=== PATIENT | female | born 1940 | race Caucasian/White ===

== ENCOUNTER 2022-06-14 13:42 | Inpatient (IN) | payer OTHER ==
[~2022-06-14] VITALS: Ht 167.6 cm; Wt 58.1 kg
[2022-06-14 14:11] VITALS: BP_SYST 154
[2022-06-14 14:59] LABS: BASOPHILS % (AUTO) 0.1 % (0.0-2.0); EOSINOPHILS % (AUTO) 0.1 % (0.0-4.0); HEMATOCRIT 29.8 % (36-48); HEMOGLOBIN 9.5 g/dL (12.0-16.0); LYMPHOCYTES % (AUTO) 17.5 % (20.5-51.5); MEAN CORPUSCULAR HEMOGLOBIN 23 pg (27-31); MEAN CORPUSCULAR HGB CONC 32 % (32-36); MEAN CORPUSCULAR VOLUME 72 fL (79.0-98.0); MONOCYTES # (AUTO) 0.5 K/uL (0.0-1.0); MONOCYTES % (AUTO) 9.2 % (1.7-9.3); NEUTROPHILS # (AUTO) 4.1 K/uL (1.8-7.7); NEUTROPHILS % (AUTO) 73.1 % (40.0-70.0); PLATELET COUNT (AUTO) 206 K/uL (130-430); RED BLOOD CELL COUNT(AUTO) 4.17 MIL/uL (4.2-6.2); RED CELL DISTRIBUTION WIDTH 16.7 % (9.0-15.0); WHITE BLOOD COUNT (AUTO) 5.6 K/uL (4.8-10.8)
[2022-06-14 15:19] LABS: ANION GAP 11 (5-15); CALCIUM 8.8 mg/dL (8.4-11.0); CHLORIDE 106 mmol/L (98-107); CREATININE 1.14 mg/dL (0.55-1.30); GLUCOSE 118 mg/dL (70-99); POTASSIUM 3.8 mmol/L (3.5-5.1); SODIUM SERUM 140 mmol/L (136-145); UREA NITROGEN, BLOOD 20 mg/dL (8-21)
[2022-06-14 15:20] LABS: PROTHROMBIN TIME 9.9 SECS (9.5-12.5)
[2022-06-14 15:33] LABS: ALANINE AMINOTRANSFERASE 8 U/L (12-78); ALBUMIN 3.2 g/dL (3.4-4.8); ASPARTATE AMINOTRANSFERASE 14 U/L (10-37); TOTAL BILIRUBIN 0.6 mg/dL (0.0-1.0)
[2022-06-14] MEDS ORDERED: iohexoL 350 mgI/mL, 100 ML INFUS..BTL IV ONE (16:19)
--- NOTE | 2022-06-14 18:49 | NUR ---
Admit bed requested Patient will be admitted to care of Dr Sosa.. Admitted to Tele unit. Diagnosis syncope/fall Inpatient (Yes or No) Observation (Yes or No) Orientation concerns or request close to nursing station (Yes or No) n/a Covid Status( pending ] On vent or bipap n/a Isolation requirements n/a Needs a sitter n/a From Home (Yes or if No enter name of facility) yes Requires Dialysis (Yes or No) n/a Med Rec Completed (Yes of No) no
--- NOTE | 2022-06-14 18:50 | NUR ---
Pt presents to the ER BIB son CC General weakness. Pt is aaox4 skin intact no signs of trauma. Pt states fell in the shower twice hitting back of head. No swelling present. Pt states lost 50 pounds in past 6 months r/t diarrhea and constipation issues seeing GI specialist visit due on 06/23/2024. Pt signed consent for CT scan. Hx HTN
--- NOTE | 2022-06-15 00:05 | NUR ---
Note shayymaciej in ED - 06/15/22 at 0008 by SDNLINA Admit bed requested Patient will be admitted to care of . Admitted to [] unit. Diagnosis [] Inpatient (Yes or No) [] Observation (Yes or No) [] Orientation concerns or request close to nursing station (Yes or No) [] Covid Status [] On vent or bipap [] Isolation requirements [] Needs a sitter [] From Home (Yes or if No enter name of facility) [] Requires Dialysis (Yes or No) [] Med Rec Completed (Yes of No) []
--- NOTE | 2022-06-15 01:09 | NUR ---
Pt ambulates steady to the restroom with assistance. Pt provided urine specimen and walked over to the lab.
[2022-06-15 01:42] LABS: BILIRUBIN,URINE 1+ (NEGATIVE); CLARITY/URINE CLEAR (CLEAR); COLOR,URINE YELLOW (YELLOW); GLUCOSE,URINE NEGATIVE (NEGATIVE); KETONES,URINE TRACE (NEGATIVE); LEUKOCYTE ESTERASE ,URINE 1+ (NEGATIVE); NITRITE, URINE NEGATIVE (NEGATIVE); PH,URINE 5.5 (5.0-8.0); PROTEIN URINE NEGATIVE (NEGATIVE)
[2022-06-15 01:46] LABS: BLOOD, URINE TRACE (NEGATIVE)
[2022-06-15 02:18] LABS: BACTERIA,URINE MODERATE /HPF (None Seen); RBC,URINE 20-50 /HPF (0-3); WBC,URINE >100 /HPF (0-3)
[2022-06-15 02:19] LABS: MUCUS,URINE 2+ /LPF (None Seen)
--- NOTE | 2022-06-15 02:44 | NUR ---
# 20 gauge angiocath placed to LAC. Use of asceptic technique. Opsite placed over site. Blood return noted. Blood for lab drawn from site. Flushed with 10 cc of normal saline. No evidence of infiltration noted. Patient tolerated well.
[2022-06-15] MEDS: hydrALAZINE HCL 20 MG/ML VIAL IVP PRN (02:48)
[2022-06-15] MEDS ORDERED: ONDANSETRON HCL 4 MG/2 ML VIAL IVP PRN (11:45)
--- NOTE | 2022-06-15 12:13 | NUR ---
DC PLANNING Received call from Dariela, liz [phone] fax [phone], CM at [facility]. Updated on pt status, faxed info requested. States to call her for any dc planning needs.
[2022-06-15] MEDS ORDERED: ACETAMINOPHEN 325 MG TABLET PO PRN (12:15)
[2022-06-15] MEDS ORDERED: NORMAL SALINE 5 ML DISP.SYRIN IVF SCH (14:00)
[2022-06-15] MEDS: NORMAL SALINE 5 ML DISP.SYRIN IVF SCH ×2 (14:16→22:17)
--- NOTE | 2022-06-15 19:05 | NUR ---
SBAR GIVEN TO PHYLLIS BRADFORD FOR TELE ROOM 104B. ALL QUESTIONS ANSWERED. PT VSS. NAD NOTED. FAMILY AT BEDSIDE. END OF CARE.
[2022-06-15 20:00] VITALS: BP_SYST 142
[2022-06-16 01:07] VITALS: BP_SYST 155
[2022-06-16 01:37] VITALS: BP_SYST 142
[2022-06-16] MEDS: NORMAL SALINE 5 ML DISP.SYRIN IVF SCH ×3 (06:00→21:30)
[2022-06-16 06:31] LABS: BASOPHILS % (AUTO) 0.2 % (0.0-2.0); EOSINOPHILS % (AUTO) 0.3 % (0.0-4.0); HEMATOCRIT 26.5 % (36-48); HEMOGLOBIN 8.6 g/dL (12.0-16.0); LYMPHOCYTES # (AUTO) 1.2 K/uL (1.0-5.5); LYMPHOCYTES % (AUTO) 19.7 % (20.5-51.5); MEAN CORPUSCULAR HEMOGLOBIN 24 pg (27-31); MEAN CORPUSCULAR HGB CONC 33 % (32-36); MEAN CORPUSCULAR VOLUME 72 fL (79.0-98.0); MONOCYTES # (AUTO) 0.7 K/uL (0.0-1.0); NEUTROPHILS # (AUTO) 4.1 K/uL (1.8-7.7); NEUTROPHILS % (AUTO) 68.8 % (40.0-70.0); PLATELET COUNT (AUTO) 183 K/uL (130-430); RED BLOOD CELL COUNT(AUTO) 3.68 MIL/uL (4.2-6.2); RED CELL DISTRIBUTION WIDTH 16.7 % (9.0-15.0)
[2022-06-16 07:12] LABS: ANION GAP 9 (5-15); CALCIUM 8.5 mg/dL (8.4-11.0); CHLORIDE 106 mmol/L (98-107); CREATININE 0.76 mg/dL (0.55-1.30); GLUCOSE 106 mg/dL (70-99); PHOSPHORUS 3.2 mg/dL (2.7-4.5); POTASSIUM 3.9 mmol/L (3.5-5.1); SODIUM SERUM 137 mmol/L (136-145); UREA NITROGEN, BLOOD 22 mg/dL (8-21)
--- NOTE | 2022-06-16 07:35 | NUR ---
RECEIVED PATIENT IN BED RESTING COMFORTABLY, NO C/O PAIN OR DISCOMFORT, PRESENTS CALM AND COOPERATIVE. RESPIRATIONS ARE NON-LABORED. SKIN IS CLEAN, WARM AND DRY TO TOUCH. IV ACCESS IS PATENT, DRY AND SEURE, NO S/SX OF REDNESS OR SWELLING OBSERVED. BED IS LOCKED IN LOWEST POSITION FOR SAFETY, FALL PRECATIONS INITIATED, CALL LIGHT IN REACH. NURSE WILL CONTINUE CARE AND MONITOR FOR CHANGES IN STATUS.
--- NOTE | 2022-06-16 08:51 | NUR ---
CONSULTATION PAGED REASON FOR CONSULTATIONANEMIA WAS CONSULT CALED?Y PERSON WHO WAS NOTIFIED:NICO CONSULTING PHYSICIAN:NIXON JIMÉNEZ TOBACCO WRAPPING MACHINE TENDER SPECIALTY:GI TOBACCO WRAPPING MACHINE TENDER PHONE NUMBER:[phone] REQUESTING PHYSICIAN:AYE LAM
[2022-06-16] MEDS: cefTRIAXone 1 GM in D5W 50 ML IV SCH (09:03)
[2022-06-16] MEDS: METOPROLOL TARTRATE 50 MG TABLET PO SCH ×2 (09:08→21:27)
[2022-06-16] MEDS: hydrALAZINE HCL 20 MG/ML VIAL IVP PRN (09:08)
[2022-06-16] MEDS: PANTOPRAZOLE SODIUM 40 MG/VIAL (PROTONIX) IVP SCH (09:08)
[2022-06-16 09:16] LABS: TOTAL IRON BIND. CAPACITY 334 ug/dL (250-450)
[2022-06-16 10:37] VITALS: BP_SYST 174
[2022-06-16 12:30] VITALS: BP_SYST 131
--- NOTE | 2022-06-16 13:11 | NUR ---
PATIENT IN BED RESTING COMFORTABLY, NO C/O PAIN OR DISCOMFORT. RESPIRATIONS ARE NON-LABORED. SKIN IS CLEAN, WARM AND DRY TO TOUCH. IV ACCESS IS PATENT, DRY AND SECURE, NO S/SX OF REDNESS OR SWELLING OBSERVED. BED IS LOCKED IN LOWEST POSITION FOR SAFETY, FALL PRECAUTIONS INITIATED, CALL LIGHT IN REACH. NURSE WILL CONTINUE CARE AND MONITOR FOR CHANGES IN STATUS.
--- NOTE | 2022-06-16 15:02 | NUR ---
CONSENTS OBTAINED FOR COLONOSCOPY AND EGD, SIGNED AND PLACED IN CHART.
--- NOTE | 2022-06-16 15:26 | NUR ---
PATIENT IN BED RESTING COMFORTABLY, NO C/O PAIN OR DISCOMFORT. RESPIRATIONS ARE NON-LABORED. SKIN IS CLEAN, WARM AND DRY TO TOUCH. IV ACCESS IS PATENT, DRY AND SECURE, NO S/SX OF REDNESS OR SWELLING OBSERVED. BED IS LOCKED IN LOWEST POSITION FOR SAFETY, CALL LIGHT IN REACH. NURSE WILL CONTINUE CARE AND MONITOR FOR CHANGES IN STATUS.
[2022-06-16] MEDS ORDERED: BISACODYL 5 MG TABLET.DR (DULCOLAX) PO ONE (17:00)
[2022-06-16 17:04] VITALS: BP_SYST 130
[2022-06-16] MEDS ORDERED: GOLYTELY / COLYTE SOLUTION 4 LITERS PO ONE (18:00)
[2022-06-16 20:00] VITALS: BP_SYST 141
[2022-06-17 00:47] VITALS: BP_SYST 122
[2022-06-17 04:00] VITALS: BP_SYST 131
[2022-06-17 06:30] LABS: BASOPHILS % (AUTO) 0.2 % (0.0-2.0); EOSINOPHILS % (AUTO) 0.2 % (0.0-4.0); HEMATOCRIT 30.8 % (36-48); HEMOGLOBIN 9.9 g/dL (12.0-16.0); LYMPHOCYTES # (AUTO) 2.2 K/uL (1.0-5.5); LYMPHOCYTES % (AUTO) 21.4 % (20.5-51.5); MEAN CORPUSCULAR HEMOGLOBIN 23 pg (27-31); MEAN CORPUSCULAR HGB CONC 32 % (32-36); MEAN CORPUSCULAR VOLUME 72 fL (79.0-98.0); MONOCYTES # (AUTO) 0.8 K/uL (0.0-1.0); MONOCYTES % (AUTO) 8.2 % (1.7-9.3); NEUTROPHILS # (AUTO) 7.1 K/uL (1.8-7.7); PLATELET COUNT (AUTO) 262 K/uL (130-430); RED BLOOD CELL COUNT(AUTO) 4.28 MIL/uL (4.2-6.2); RED CELL DISTRIBUTION WIDTH 16.8 % (9.0-15.0); WHITE BLOOD COUNT (AUTO) 10.2 K/uL (4.8-10.8)
[2022-06-17] MEDS: NORMAL SALINE 5 ML DISP.SYRIN IVF SCH ×2 (06:58→14:00)
[2022-06-17] MEDS ORDERED: MAGNESIUM CITRATE 300 ML ORAL SOLUTION PO ONE (08:00)
[2022-06-17 08:24] VITALS: BP_SYST 139
--- NOTE | 2022-06-17 08:24 | NUR ---
CONSULTATION PAGED REASON FOR CONSULTATION:ANEMIA WAS CONSULT CALLED?Y -PERSON WHO WAS NOTIFIED:ELISABETH CONSULTING PHYSICIAN:NIXON JIMÉNEZ DOORKEEPER SPECIALTY:GI DOORKEEPER PHONE NUMBER:[phone] REQUESTING PHYSICIAN AYE LAM
[2022-06-17] MEDS: METOPROLOL TARTRATE 50 MG TABLET PO SCH ×2 (08:41→21:47)
[2022-06-17] MEDS: PANTOPRAZOLE SODIUM 40 MG/VIAL (PROTONIX) IVP SCH (08:41)
[2022-06-17 08:48] LABS: ALANINE AMINOTRANSFERASE 7 U/L (12-78); ANION GAP 11 (5-15); ASPARTATE AMINOTRANSFERASE 19 U/L (10-37); CALCIUM 8.7 mg/dL (8.4-11.0); CHLORIDE 105 mmol/L (98-107); CREATININE 1.03 mg/dL (0.55-1.30); GLUCOSE 146 mg/dL (70-99); POTASSIUM 3.4 mmol/L (3.5-5.1); SODIUM SERUM 141 mmol/L (136-145); TOTAL BILIRUBIN 0.6 mg/dL (0.0-1.0); UREA NITROGEN, BLOOD 23 mg/dL (8-21)
--- NOTE | 2022-06-17 08:56 | NUR ---
Enema done. Patient tolerated well
[2022-06-17] MEDS ORDERED: POTASSIUM CHLORIDE 20 MEQ/PKT PACKET PO ONE (09:15)
--- NOTE | 2022-06-17 09:53 | NUR ---
Patient left for colonoscopy
[2022-06-17] MEDS: SOD FERRIC GLUC COMPLEX/SUC 125 MG in NS 100 ML IV SCH (10:00)
[2022-06-17] MEDS ORDERED: MEPERIDINE 100 MG INJ. 100 MG/ML VIAL ONE (10:09)
[2022-06-17] MEDS ORDERED: SIMETHICONE 40 MG/0.6 ML ML ONE (10:09)
[2022-06-17] MEDS ORDERED: MIDAZOLAM HCL 5 MG/5 ML VIAL ONE (10:10)
[2022-06-17 12:16] VITALS: BP_SYST 140
--- NOTE | 2022-06-17 12:16 | NUR ---
STEVE: discussed dcp with STEVE Lyle /[facility]: stated, she spoke with family who requested HH and Fww with seat upon discharge. Per request, I faxed the order and clinicals to fax# [phone], tel .
--- NOTE | 2022-06-17 12:38 | NUR ---
CONSULTATION PAGED REASON FOR CONSULTATION:RECTAL MASS WAS CONSULT CALLED?Y -PERSON WHO WAS NOTIFIED:RHODA CONSULTING PHYSICIAN:TOSHIA PACHECO (KIRTI CHAUDHARY HEMMER AUTOMATIC) PRODUCTION FLOATER SPECIALTY:SURGEON PRODUCTION FLOATER PHONE NUMBER:[phone] REQUESTING PHYSICIAN NIXON JIMÉNEZ
[2022-06-17] MEDS: cefTRIAXone 1 GM in D5W 50 ML IV SCH (13:51)
--- NOTE | 2022-06-17 14:32 | NUR ---
Dietitian Recommendations: When medically appropriate, consider 2gNa diet If PO <75% of est nutrient needs, add daily ONS Consider daily bowel regimen with Fe supplement Nutrition education: high iron foods Please refer to initial assessment for more details CC, MPH, RDN
--- NOTE | 2022-06-17 15:15 | NUR ---
CONSULTATION PAGED REASON FOR CONSULTATION:RECTAL MASS WAS CONSULT CALLED?Y -PERSON WHO WAS NOTIFIED:ALAN CONSULTING PHYSICIAN:RENÉE BEST PASSENGER CAR CONDUCTOR SPECIALTY:HEMATOLOGY PASSENGER CAR CONDUCTOR PHONE NUMBER:[phone] REQUESTING PHYSICIAN:NIXON JIMÉNEZ
[2022-06-17 16:10] VITALS: BP_SYST 142
--- NOTE | 2022-06-17 19:22 | NUR ---
RECEIVED REPORT FROM SUZETTE ALICIA, ASSUMED CARE, AND STARTED ASSESSMENT.
[2022-06-17 20:00] VITALS: BP_SYST 147
--- NOTE | 2022-06-18 02:00 | NUR ---
ASSISTED PT TO THE RESTROOM, AND WENT ON BREAK. PT WAS ASSISTED BACK TO HER BED BY RELIEVING STAFF. RETURNED FROM BREAK AT 0230. WILL CONTINUE TO MONITOR AND ASSESS FOR SAFETY AND COMFORT.
[2022-06-18 06:29] LABS: BASOPHILS % (AUTO) 0.3 % (0.0-2.0); EOSINOPHILS # (AUTO) 0.1 K/uL (0.0-0.4); EOSINOPHILS % (AUTO) 1.4 % (0.0-4.0); HEMATOCRIT 25.7 % (36-48); HEMOGLOBIN 8.3 g/dL (12.0-16.0); LYMPHOCYTES # (AUTO) 0.9 K/uL (1.0-5.5); LYMPHOCYTES % (AUTO) 16.7 % (20.5-51.5); MEAN CORPUSCULAR HEMOGLOBIN 23 pg (27-31); MEAN CORPUSCULAR HGB CONC 32 % (32-36); MEAN CORPUSCULAR VOLUME 71 fL (79.0-98.0); MONOCYTES # (AUTO) 0.5 K/uL (0.0-1.0); MONOCYTES % (AUTO) 9.2 % (1.7-9.3); NEUTROPHILS # (AUTO) 3.7 K/uL (1.8-7.7); PLATELET COUNT (AUTO) 172 K/uL (130-430); RED BLOOD CELL COUNT(AUTO) 3.61 MIL/uL (4.2-6.2); RED CELL DISTRIBUTION WIDTH 17.1 % (9.0-15.0); WHITE BLOOD COUNT (AUTO) 5.1 K/uL (4.8-10.8)
[2022-06-18 07:07] LABS: ALANINE AMINOTRANSFERASE 7 U/L (12-78); ALBUMIN 2.5 g/dL (3.4-4.8); ANION GAP 7 (5-15); ASPARTATE AMINOTRANSFERASE 16 U/L (10-37); CALCIUM 8.2 mg/dL (8.4-11.0); CHLORIDE 108 mmol/L (98-107); GLUCOSE 91 mg/dL (70-99); POTASSIUM 3.6 mmol/L (3.5-5.1); SODIUM SERUM 140 mmol/L (136-145); TOTAL BILIRUBIN 0.3 mg/dL (0.0-1.0); UREA NITROGEN, BLOOD 14 mg/dL (8-21)
--- NOTE | 2022-06-18 07:21 | NUR ---
REPORT WAS GIVEN TO SUZETTE BENITEZ, AND CARE WAS TURNED OVER TO HER.
[2022-06-18 08:06] LABS: NEUTROPHILS % (AUTO) 72.4 % (40.0-70.0)
[2022-06-18 08:48] VITALS: BP_SYST 147
[2022-06-18] MEDS: PANTOPRAZOLE SODIUM 40 MG/VIAL (PROTONIX) IVP SCH (08:58)
[2022-06-18] MEDS: METOPROLOL TARTRATE 50 MG TABLET PO SCH ×2 (08:58→21:23)
[2022-06-18] MEDS: SOD FERRIC GLUC COMPLEX/SUC 125 MG in NS 100 ML IV SCH (10:00)
[2022-06-18] MEDS: cefTRIAXone 1 GM in D5W 50 ML IV SCH (10:58)
[2022-06-18 12:00] VITALS: BP_SYST 146
[2022-06-18] MEDS ORDERED: GADOTERATE MEGLUMINE 7.5 MMOL/15 ML VIAL IV ONE (12:49)
[2022-06-18] MEDS: NORMAL SALINE 5 ML DISP.SYRIN IVF SCH ×2 (14:00→21:24)
[2022-06-18] MEDS ORDERED: iohexoL 240 mgI/mL, 50 ML INFUS..BTL IV ONE (15:14)
--- NOTE | 2022-06-18 15:42 | NUR ---
Attempted PT visit, pt refused and requested to be seen another day. RN made aware.
[2022-06-18 16:09] VITALS: BP_SYST 146
--- NOTE | 2022-06-18 16:43 | NUR ---
PT is Axox4, ambulatory with 1-person assist, VSS, bed in lowest position, locked. Patient awaiting oncology consult per Dr. Naz Corcoran.
--- NOTE | 2022-06-18 19:15 | NUR ---
RECEIVED REPORT FROM SUZETTE BENITEZ, ASSUMED CARE, AND STARTED ASSESSMENT.
[2022-06-18 20:00] VITALS: BP_SYST 155
[2022-06-19] MEDS: NORMAL SALINE 5 ML DISP.SYRIN IVF SCH ×2 (05:18→14:00)
[2022-06-19 07:27] LABS: BASOPHILS % (AUTO) 0.2 % (0.0-2.0); EOSINOPHILS % (AUTO) 0.8 % (0.0-4.0); HEMATOCRIT 25.5 % (36-48); HEMOGLOBIN 8.3 g/dL (12.0-16.0); LYMPHOCYTES # (AUTO) 0.9 K/uL (1.0-5.5); LYMPHOCYTES % (AUTO) 19.7 % (20.5-51.5); MEAN CORPUSCULAR HEMOGLOBIN 23 pg (27-31); MEAN CORPUSCULAR HGB CONC 32 % (32-36); MEAN CORPUSCULAR VOLUME 72 fL (79.0-98.0); MONOCYTES # (AUTO) 0.5 K/uL (0.0-1.0); MONOCYTES % (AUTO) 12.1 % (1.7-9.3); NEUTROPHILS # (AUTO) 3.1 K/uL (1.8-7.7); NEUTROPHILS % (AUTO) 67.2 % (40.0-70.0); PLATELET COUNT (AUTO) 172 K/uL (130-430); RED BLOOD CELL COUNT(AUTO) 3.56 MIL/uL (4.2-6.2); RED CELL DISTRIBUTION WIDTH 17.1 % (9.0-15.0); WHITE BLOOD COUNT (AUTO) 4.5 K/uL (4.8-10.8)
[2022-06-19 08:01] LABS: ALBUMIN 2.3 g/dL (3.4-4.8); ANION GAP 5 (5-15); ASPARTATE AMINOTRANSFERASE 13 U/L (10-37); CALCIUM 7.9 mg/dL (8.4-11.0); CHLORIDE 108 mmol/L (98-107); CREATININE 0.77 mg/dL (0.55-1.30); GLUCOSE 92 mg/dL (70-99); POTASSIUM 3.7 mmol/L (3.5-5.1); SODIUM SERUM 140 mmol/L (136-145); TOTAL BILIRUBIN 0.3 mg/dL (0.0-1.0); UREA NITROGEN, BLOOD 7 mg/dL (8-21)
[2022-06-19 08:29] LABS: ALANINE AMINOTRANSFERASE 6 U/L (12-78)
[2022-06-19 09:06] LABS: FOLATE (FOLIC ACID) 14.2 ng/mL (>3.0)
[2022-06-19] MEDS ORDERED: FERR240T5 PO (09:12)
[2022-06-19] MEDS ORDERED: PANT20TA2 PO (09:12)
[2022-06-19] MEDS ORDERED: METO-442 PO (09:12)
[2022-06-19] MEDS: PANTOPRAZOLE SODIUM 40 MG/VIAL (PROTONIX) IVP SCH (10:13)
[2022-06-19] MEDS: cefTRIAXone 1 GM in D5W 50 ML IV SCH (10:14)
[2022-06-19] MEDS: METOPROLOL TARTRATE 50 MG TABLET PO SCH ×2 (10:14→22:05)
[2022-06-19] MEDS: SOD FERRIC GLUC COMPLEX/SUC 125 MG in NS 100 ML IV SCH (10:15)
[2022-06-19 15:16] VITALS: BP_SYST 141
[2022-06-19 16:00] VITALS: BP_SYST 150
--- NOTE | 2022-06-19 16:17 | NUR ---
Discharge Planning: DCP faxed pt referral to [facility] [phone]
--- NOTE | 2022-06-19 18:45 | NUR ---
Miss Green has been assessed as indicated. she continues to deny pain. He DC home has been delayed as there is a possible plan for surgery on Wednesday. however the oncologist must complete his evaluation of the colonoscopy findings. Miss Hodge's son is aware of this possibility. She worked with PT today. she is compliant with the plan to remain hospitalized until her plan of care is clear. she is resting quietly at this time
--- NOTE | 2022-06-19 19:12 | NUR ---
RE-SURGERY PLAN TO HOLD FOR NOW FOUND OUT FROM PATIENT'S SON THAT DR BLACK IS PLANNING A SURGERY TO THE PATIENT. SPOKE TO DR BLACK AND SAID THAT HE SPOKE TO DR LOWERY AND MADE AWARE ABOUT THE PLAN OF SURGERY. DR LOWERY DID NOT INFORM DR VILLARREAL WHO IS IN CHARGE OF THE PATIENT TODAY. DR MERCER CAME AND MADE AWARE OF SURGERY AND SPOKE TO DR VILLARREAL AND WANTS THE SURGERY TO BE HOLD FOR NOW BECAUSE THERE IS NO FINAL RESULTS OF MRI, HE WANTS THE PATIENT TO HAVE A MEDIPORT FIRST AND WILL DO CHEMO. PAGED DR BLACK 2X BUT NEVER CALL BACK. NOTIFIED SON THAT SURGERY IS ON HOLD.WILL ENDORSE TO INCOMING CHARGE NURSE NIKIA.
[2022-06-19 20:00] VITALS: BP_SYST 164
[2022-06-20] MEDS: NORMAL SALINE 5 ML DISP.SYRIN IVF SCH ×3 (04:43→21:15)
[2022-06-20] MEDS ORDERED: iohexoL 350 mgI/mL, 100 ML INFUS..BTL IV ONE (07:04)
[2022-06-20 07:37] LABS: BASOPHILS % (AUTO) 0.2 % (0.0-2.0); EOSINOPHILS # (AUTO) 0.1 K/uL (0.0-0.4); EOSINOPHILS % (AUTO) 0.9 % (0.0-4.0); HEMATOCRIT 26.3 % (36-48); HEMOGLOBIN 8.4 g/dL (12.0-16.0); LYMPHOCYTES # (AUTO) 1.2 K/uL (1.0-5.5); LYMPHOCYTES % (AUTO) 21.6 % (20.5-51.5); MEAN CORPUSCULAR HEMOGLOBIN 23 pg (27-31); MEAN CORPUSCULAR HGB CONC 32 % (32-36); MEAN CORPUSCULAR VOLUME 72 fL (79.0-98.0); MONOCYTES # (AUTO) 0.7 K/uL (0.0-1.0); MONOCYTES % (AUTO) 13.3 % (1.7-9.3); NEUTROPHILS # (AUTO) 3.5 K/uL (1.8-7.7); PLATELET COUNT (AUTO) 171 K/uL (130-430); RED BLOOD CELL COUNT(AUTO) 3.65 MIL/uL (4.2-6.2); RED CELL DISTRIBUTION WIDTH 17.3 % (9.0-15.0); WHITE BLOOD COUNT (AUTO) 5.5 K/uL (4.8-10.8)
[2022-06-20 07:47] LABS: ANION GAP 7 (5-15); C-REACTIVE PROTEIN QUANT 5.4 mg/dL (0-0.5); CHLORIDE 108 mmol/L (98-107); GLUCOSE 98 mg/dL (70-99); POTASSIUM 3.7 mmol/L (3.5-5.1); SODIUM SERUM 141 mmol/L (136-145); UREA NITROGEN, BLOOD 13 mg/dL (8-21)
[2022-06-20] MEDS: SOD FERRIC GLUC COMPLEX/SUC 125 MG in NS 100 ML IV SCH (10:00)
[2022-06-20] MEDS: PANTOPRAZOLE SODIUM 40 MG/VIAL (PROTONIX) IVP SCH (11:36)
[2022-06-20] MEDS: cefTRIAXone 1 GM in D5W 50 ML IV SCH (11:40)
[2022-06-20] MEDS: METOPROLOL TARTRATE 50 MG TABLET PO SCH ×2 (11:48→21:15)
[2022-06-20] MEDS: ACETAMINOPHEN 325 MG TABLET PO PRN (11:48)
[2022-06-20 12:00] VITALS: BP_SYST 148
--- NOTE | 2022-06-20 12:19 | NUR ---
Dr. Perea, oncologist, came to see patient. Discussed information with patient's son.
--- NOTE | 2022-06-20 12:51 | NUR ---
CM: Faxed HH order and referral package to [facility] tel # [phone], fax # [phone]. Addendum: 06/20/22 at 1501 by Erica Jensen RN Kaylyn Mireles, exchange line, s/w STEVE Ng still waiting for [facility] call back.
[2022-06-20 13:06] LABS: ERYTHROCYTE SEDIMENTATION RATE 44 MM/HR (0-20)
[2022-06-20 16:00] VITALS: BP_SYST 136
--- NOTE | 2022-06-20 19:15 | NUR ---
OPENING NOTES: Patient received from AM shift. Patient is AA&Ox4 able to make needs known denies any pain or distress at this time. Chest rise is even and unlabored on RA. Patient is able to verbalize needs and has call light within reach. Patient is continent and has bathroom privileges for ambulation. Safety protocols are in place as per facility protocol. Will resume care and continue to monitor throughout the shift.
[2022-06-20 20:00] VITALS: BP_SYST 157
[2022-06-20 22:13] VITALS: BP_SYST 136
[2022-06-21 00:30] VITALS: BP_SYST 132
[2022-06-21] MEDS: LORazepam 2 MG/ML VIAL IVP PRN ×2 (00:43→21:10)
--- NOTE | 2022-06-21 01:00 | NUR ---
ROUND: Midnight rounds completed and V/S were assessed at this time. Patient is resting and denies any pain or distress at this time. Patient reported difficulty sleeping and anxiety and PRN Ativan was administered as prescribed. Will continue to monitor throughout the shift.
[2022-06-21] MEDS: NORMAL SALINE 5 ML DISP.SYRIN IVF SCH ×4 (06:23→23:59)
--- NOTE | 2022-06-21 06:37 | NUR ---
CLOSING NOTES: Patient is in bed resting no s/s of distress is noted. Patient is AA&Ox4 able to verbalize needs and has call light within reach. Patient is currently stable and all shift needs have been met. Safety measures remain in place. Will differ further care to AM shift nurse for continuity of care.
[2022-06-21 07:48] LABS: ANION GAP 7 (5-15); C-REACTIVE PROTEIN QUANT 3.6 mg/dL (0-0.5); CALCIUM 8.2 mg/dL (8.4-11.0); CHLORIDE 109 mmol/L (98-107); CREATININE 0.89 mg/dL (0.55-1.30); GLUCOSE 100 mg/dL (70-99); POTASSIUM 3.8 mmol/L (3.5-5.1); SODIUM SERUM 143 mmol/L (136-145); UREA NITROGEN, BLOOD 13 mg/dL (8-21)
[2022-06-21 09:22] VITALS: BP_SYST 171
[2022-06-21] MEDS: METOPROLOL TARTRATE 50 MG TABLET PO SCH ×2 (09:25→21:09)
[2022-06-21] MEDS: PANTOPRAZOLE SODIUM 40 MG/VIAL (PROTONIX) IVP SCH (09:34)
[2022-06-21] MEDS: cefTRIAXone 1 GM in D5W 50 ML IV SCH (09:38)
[2022-06-21] MEDS: SOD FERRIC GLUC COMPLEX/SUC 125 MG in NS 100 ML IV SCH (09:39)
[2022-06-21 12:16] LABS: BASOPHILS % (AUTO) 0.4 % (0.0-2.0); EOSINOPHILS # (AUTO) 0.1 K/uL (0.0-0.4); EOSINOPHILS % (AUTO) 1.6 % (0.0-4.0); HEMATOCRIT 25.9 % (36-48); HEMOGLOBIN 8.4 g/dL (12.0-16.0); MEAN CORPUSCULAR HEMOGLOBIN 24 pg (27-31); MEAN CORPUSCULAR HGB CONC 33 % (32-36); MEAN CORPUSCULAR VOLUME 73 fL (79.0-98.0); MONOCYTES # (AUTO) 0.5 K/uL (0.0-1.0); MONOCYTES % (AUTO) 12.6 % (1.7-9.3); NEUTROPHILS # (AUTO) 2.3 K/uL (1.8-7.7); NEUTROPHILS % (AUTO) 59.4 % (40.0-70.0); PLATELET COUNT (AUTO) 156 K/uL (130-430); RED BLOOD CELL COUNT(AUTO) 3.54 MIL/uL (4.2-6.2)
--- NOTE | 2022-06-21 12:22 | NUR ---
DR DÍAZ CONSULT CALLED DR DÍAZ EXCHANGE [phone] SPOKE TO LILIA NOTIFIED FOR CONSULT REASON MEDIPORT PLACEMENT
[2022-06-21 13:06] VITALS: BP_SYST 146
[2022-06-21 13:08] LABS: WHITE BLOOD COUNT (AUTO) 3.9 K/uL (4.8-10.8)
[2022-06-21 13:57] LABS: ERYTHROCYTE SEDIMENTATION RATE 47 MM/HR (0-20)
[2022-06-21 16:25] VITALS: BP_SYST 154
--- NOTE | 2022-06-21 19:05 | NUR ---
OPENING NOTES: Patient received from AM shift nurse. Patient is Awake AA&Ox4 able to communicate needs denies any pain or discomfort at this time. Chest rise is even and unlabored on RA. Normal heart sounds were auscultated. Patient is ambulatory and is continent of B&B. Patient is orientated on the call light and it is within reach. Safety measures are in place as per protocol. Will resume care and continue to monitor throughout the shift.
[2022-06-21 20:00] VITALS: BP_SYST 172
[2022-06-21] MEDS: hydrALAZINE HCL 20 MG/ML VIAL IVP PRN (23:59)
[2022-06-22] VITALS: BP_SYST 175
[2022-06-22] MEDS ORDERED: ZOLPIDEM TARTRATE 5 MG TABLET PO ONE (00:15)
--- NOTE | 2022-06-22 00:30 | NUR ---
ROUNDS: Patient is awake and sitting on chair. Patient V/S were assessed at this time and B/P was elevated at 175/89 and PRN medication was administered as ordered. Dr. Ott was contacted per Patient request because she could not sleep. New order was received for Victor M. Noted and administered. Will continue to monitor.
--- NOTE | 2022-06-22 06:42 | NUR ---
CLOSING NOTES: Patient is bed resting no s/s of distress at this time. Patient is AA&Ox4 able to make needs known and has call light within reach. Chest rise is even and unlabored on RA. Patient received hydralazine due to elevated B/P of 175/89, B/P was reassessed at 138/72. All current shift needs have been met at this time and patient is stable at this time. Safety protocol is in place. Will differ further care to AM shift for continuity of care.
[2022-06-22 06:44] LABS: BASOPHILS % (AUTO) 0.4 % (0.0-2.0); EOSINOPHILS # (AUTO) 0.1 K/uL (0.0-0.4); EOSINOPHILS % (AUTO) 1.8 % (0.0-4.0); HEMATOCRIT 25.9 % (36-48); HEMOGLOBIN 8.6 g/dL (12.0-16.0); LYMPHOCYTES # (AUTO) 0.9 K/uL (1.0-5.5); LYMPHOCYTES % (AUTO) 20.6 % (20.5-51.5); MEAN CORPUSCULAR HEMOGLOBIN 24 pg (27-31); MEAN CORPUSCULAR HGB CONC 33 % (32-36); MEAN CORPUSCULAR VOLUME 73 fL (79.0-98.0); MONOCYTES # (AUTO) 0.5 K/uL (0.0-1.0); MONOCYTES % (AUTO) 11.6 % (1.7-9.3); NEUTROPHILS # (AUTO) 2.9 K/uL (1.8-7.7); NEUTROPHILS % (AUTO) 65.6 % (40.0-70.0); PLATELET COUNT (AUTO) 188 K/uL (130-430); RED BLOOD CELL COUNT(AUTO) 3.55 MIL/uL (4.2-6.2); RED CELL DISTRIBUTION WIDTH 17.7 % (9.0-15.0); WHITE BLOOD COUNT (AUTO) 4.4 K/uL (4.8-10.8)
--- NOTE | 2022-06-22 07:39 | NUR ---
PHYSICAL THERAPY CO-SIGN The Physical Therapy Progress Notes documented by Client Retention Specialist have been reviewed. Reviewed/Co-Signed by: Jacob Hairston Documentation Done by: CARTER ROBLES PTA Addendum: 06/22/22 at 0739 by Jacob Hairston PT Amended: Links added.
[2022-06-22 07:54] LABS: ALANINE AMINOTRANSFERASE 2 U/L (12-78); ALBUMIN 2.2 g/dL (3.4-4.8); ANION GAP 9 (5-15); ASPARTATE AMINOTRANSFERASE 14 U/L (10-37); C-REACTIVE PROTEIN QUANT 1.8 mg/dL (0-0.5); CALCIUM 8.3 mg/dL (8.4-11.0); CHLORIDE 109 mmol/L (98-107); CREATININE 0.86 mg/dL (0.55-1.30); GLUCOSE 99 mg/dL (70-99); POTASSIUM 3.4 mmol/L (3.5-5.1); SODIUM SERUM 144 mmol/L (136-145); TOTAL BILIRUBIN < 0.1 mg/dL (0.0-1.0); UREA NITROGEN, BLOOD 17 mg/dL (8-21)
[2022-06-22 09:05] LABS: ERYTHROCYTE SEDIMENTATION RATE 54 MM/HR (0-20)
[2022-06-22] MEDS: PANTOPRAZOLE SODIUM 40 MG/VIAL (PROTONIX) IVP SCH (09:53)
[2022-06-22] MEDS: METOPROLOL TARTRATE 50 MG TABLET PO SCH ×2 (09:54→21:11)
[2022-06-22] MEDS: cefTRIAXone 1 GM in D5W 50 ML IV SCH (10:03)
[2022-06-22] MEDS: SOD FERRIC GLUC COMPLEX/SUC 125 MG in NS 100 ML IV SCH (10:21)
[2022-06-22] MEDS: NORMAL SALINE 5 ML DISP.SYRIN IVF SCH ×2 (14:57→21:11)
[2022-06-22] MEDS ORDERED: KCL 10 mEq in 50 mL (PREMIX) 50 ML IV ONE (15:30)
--- NOTE | 2022-06-22 16:11 | NUR ---
DISCHARGE PLANNING Spoke with pt & son Ed at bedside. Pt is going to have Diverting Colostomy & Mediport today. Pt normally lives in [place] with dtr February who is her caregiver. Ed states that pt is new diagnosis for Cancer & upon discharge is going to going home with him. Son Ed lives in 2 story house with pt room going to be upstairs. Pt will not be going up or down stairs on own, son will assist her. Also in home is dtr in law & 4 granddtrs, 2 adult & 15yo & 10 yo. Pt will be following up with Dr Perea(oncologist) in [place]. Son & dtr in law will learns Colostomy care and will be main caregivers while she is at his home. Pt will still be going with Dtr February in [place] when not doing Chemo, so dtr Kianna will also learn Colostomy care and will be her main caregiver when staying in [place]. Pt has FWW, and baseline ambulates on own using fww. Is going to be changing pt's Md's to closer to [place] & would like [facility] informed. Called & lt msg with Dariela at [facility], ph [phone], updating pt status. son Ed, home address: [address] [place] [address], [id number]
[2022-06-22 20:00] VITALS: BP_SYST 133
[2022-06-22] MEDS: ZOLPIDEM TARTRATE 5 MG TABLET PO PRN (23:45)
[2022-06-23] VITALS: BP_SYST 137
[2022-06-23] MEDS: NORMAL SALINE 5 ML DISP.SYRIN IVF SCH ×3 (06:15→21:11)
[2022-06-23 06:19] LABS: BASOPHILS % (AUTO) 0.3 % (0.0-2.0); EOSINOPHILS # (AUTO) 0.1 K/uL (0.0-0.4); EOSINOPHILS % (AUTO) 1.7 % (0.0-4.0); HEMATOCRIT 27.5 % (36-48); LYMPHOCYTES # (AUTO) 0.8 K/uL (1.0-5.5); LYMPHOCYTES % (AUTO) 17.4 % (20.5-51.5); MEAN CORPUSCULAR HEMOGLOBIN 24 pg (27-31); MEAN CORPUSCULAR HGB CONC 33 % (32-36); MEAN CORPUSCULAR VOLUME 73 fL (79.0-98.0); MONOCYTES # (AUTO) 0.6 K/uL (0.0-1.0); MONOCYTES % (AUTO) 12.6 % (1.7-9.3); NEUTROPHILS # (AUTO) 3.2 K/uL (1.8-7.7); PLATELET COUNT (AUTO) 191 K/uL (130-430); RED BLOOD CELL COUNT(AUTO) 3.79 MIL/uL (4.2-6.2); RED CELL DISTRIBUTION WIDTH 17.5 % (9.0-15.0); WHITE BLOOD COUNT (AUTO) 4.6 K/uL (4.8-10.8)
[2022-06-23 06:42] LABS: CHLORIDE 107 mmol/L (98-107); GLUCOSE 107 mg/dL (70-99); POTASSIUM 3.6 mmol/L (3.5-5.1); UREA NITROGEN, BLOOD 17 mg/dL (8-21)
--- NOTE | 2022-06-23 07:05 | NUR ---
OPENING NOTES: Patient received from AM shift. Patient is AA&Ox4 able to make needs known, denies any pain or discomfort at this time, has call light within reach. Patient is ambulatory but has some weakness and was provided education to use the bedside commode and not ambulate with out assistance to the bathroom. Patient verbalized understanding. Patient reports that she is still having multiple episodes of bowel movements in a day. MD is aware. Patient is currently stable and safety protocol is in place as per protocol. Will resume care and continue to monitor throughout the shift.
[2022-06-23 07:51] LABS: ANION GAP 12 (5-15); CALCIUM 9.1 mg/dL (8.4-11.0); SODIUM SERUM 141 mmol/L (136-145)
[2022-06-23 08:00] VITALS: BP_SYST 169
--- NOTE | 2022-06-23 08:06 | NUR ---
PHYSICAL THERAPY CO-SIGN The Physical Therapy Progress Notes documented by Venetian Blind Assembler have been reviewed. Reviewed/Co-Signed by: Jacob Hairston Documentation Done by: CARTER ROBLES PTA Addendum: 06/23/22 at 0806 by Jacob Hairston PT Amended: Links added.
[2022-06-23] MEDS: hydrALAZINE HCL 20 MG/ML VIAL IVP PRN (09:45)
[2022-06-23] MEDS: SOD FERRIC GLUC COMPLEX/SUC 125 MG in NS 100 ML IV SCH (10:00)
[2022-06-23] MEDS: METOPROLOL TARTRATE 50 MG TABLET PO SCH ×2 (10:16→21:15)
[2022-06-23] MEDS: PANTOPRAZOLE SODIUM 40 MG/VIAL (PROTONIX) IVP SCH (10:16)
[2022-06-23 11:45] VITALS: BP_SYST 141
[2022-06-23 20:00] VITALS: BP_SYST 135
[2022-06-23] MEDS: ZOLPIDEM TARTRATE 5 MG TABLET PO PRN (23:28)
[2022-06-23] MEDS: KCL 20 mEq in D5/0.45NS 1000mL 1,000 ML IV SCH (23:29)
--- NOTE | 2022-06-24 | NUR ---
ROUNDS: Patient is now resting. Patient was administered zolpidem at 2330 as requested and V/S were assessed at this time and were within normal range. Patient has KCL in D51/2NS running at 50ml/hr. and is tolerating it well. Will continue to monitor.
[2022-06-24 01:02] VITALS: BP_SYST 130
[2022-06-24] MEDS: NORMAL SALINE 5 ML DISP.SYRIN IVF SCH ×3 (05:51→21:06)
--- NOTE | 2022-06-24 06:45 | NUR ---
Patient IV was noted to be leaking after the administration of PRN med not administered. New line inserted on the RFA 20G.
[2022-06-24] MEDS: hydrALAZINE HCL 20 MG/ML VIAL IVP PRN ×2 (06:47→08:41)
[2022-06-24] MEDS: PANTOPRAZOLE SODIUM 40 MG/VIAL (PROTONIX) IVP SCH (08:39)
[2022-06-24] MEDS: METOPROLOL TARTRATE 50 MG TABLET PO SCH ×2 (08:40→20:28)
[2022-06-24] MEDS: ACETAMINOPHEN 325 MG TABLET PO PRN (08:41)
[2022-06-24] MEDS ORDERED: BUPIVACAINE /PF 0.25% 30 ML VIAL INJ ONE (09:11)
[2022-06-24] MEDS ORDERED: DESFLURANE 15 MIN GAS INH ONE (09:11)
[2022-06-24] MEDS ORDERED: fentaNYL CITRATE/PF 100 MCG/2 ML AMP ONE (09:11)
[2022-06-24] MEDS ORDERED: BUPIVACAINE LIPOSOME/PF 266 MG/20 ML VIAL INFIL ONE ×2 (09:11→11:29)
[2022-06-24] MEDS ORDERED: metroNIDAZOLE 500 mg/NS 100 mL IVPB IV ONE (09:11)
[2022-06-24] MEDS ORDERED: MIDAZOLAM HCL 2 MG/2 ML VIAL (VERSED) ONE (09:11)
[2022-06-24] MEDS ORDERED: ceFAZolin SODIUM 1 GM VIAL ONE (09:11)
[2022-06-24] MEDS ORDERED: ROCURONIUM BROMIDE 10 MG/ML (ZEMURON) ONE (09:11)
[2022-06-24] MEDS ORDERED: ONDANSETRON HCL 4 MG/2 ML VIAL ONE (09:11)
[2022-06-24] MEDS ORDERED: SUGAMMADEX SODIUM 200 MG/2 ML VIAL IV ONE (09:11)
[2022-06-24] MEDS ORDERED: LIDOCAINE 1% 10 MG/ML, 20 ML MDV ONE (09:11)
[2022-06-24] MEDS ORDERED: DEXAMETHASONE SOD PHOSPHATE 4 MG/ML VIAL ONE (09:11)
[2022-06-24] MEDS ORDERED: PROPOFOL 200MG/ 20ML VIAL (DIPRIVAN) IV ONE (09:11)
[2022-06-24] MEDS ORDERED: NS 1000 ML IV.SOLN IV ONE (09:11)
[2022-06-24] MEDS ORDERED: ACETAMINOPHEN I.V. 1000 MG 100 ML IV ONE (09:56)
[2022-06-24] MEDS ORDERED: METOCLOPRAMIDE HCL 10 MG/2 ML VIAL IVP PRN (10:00)
[2022-06-24] MEDS ORDERED: HYDROmorphone 1 MG/ML INJ. CARTRIDGE IVP PRN ×2 (10:00)
[2022-06-24] MEDS ORDERED: LABETALOL 100 MG/ 20ML VIAL IVP PRN (10:00)
[2022-06-24] MEDS ORDERED: MEPERIDINE HCL/PF 25 MG/ML DISP.SYRIN IVP PRN (10:00)
[2022-06-24] MEDS ORDERED: hydrALAZINE HCL 20 MG/ML VIAL IVP PRN (10:00)
[2022-06-24] MEDS: ATROPINE SULFATE 0.4 MG/ML VIAL ONE ×2 (12:57→13:05)
[2022-06-24] MEDS: SOD FERRIC GLUC COMPLEX/SUC 125 MG in NS 100 ML IV SCH (13:00)
[2022-06-24] MEDS: NACL 0.9% 1,000 ML IV SCH (14:00)
--- NOTE | 2022-06-24 14:11 | NUR ---
Pt back from procedure. Pt is alert, but sleepy. Responds to her name. Denies any pain at this time. Procedure to insert Mediport and diverting colostomy was a success. Pt has a JOSÉ MIGUEL inserted into the right lower abdomen. Colostomy is draining from the left lower abdomen. Pt is stable at this time. Will continue to monitor
--- NOTE | 2022-06-24 15:18 | NUR ---
Nutrition f/u Admitting Diagnosis Syncope/ fall Reviewed Pertinent Medical/Surgical Hx Medical Record Patient Medical History Comment: 82yF with pmh HTN, CABG x3, who presented to the ED for syncope and generalized weakness. Per EMR, patient lives in [place] with her dtr who is pt's bilingual medical receptionist. Pt hit her head and briefly lost consciousness. Per dtr, pt has had multiple fainting spells in the past few months, Pt discussed ongoing constipation and diarrhea x5 months as well as 50lb (29.4%) weight loss x 5 months Per EMR, s/p CT and EKG 06/14; EEG 06/15; and tap water enema 06/17. After labs were drawn, pt ws found to have anemia with 8.6g/dL hgb and 26.5% hct. 06/17 labs have improved slightly to 9.9g/dL hgb and 30.8% hct. Per GI 06/24: S/p EGD showed gastritis, gastric polyp, hiatal hernia. Biopsies benign. s/p Colonoscopy showed distal rectal adenocarcinoma, transverse colon polyp large sessile not removable by colonoscopy - area tattooed and biopsied (tubular adenoma); small rectosigmoid polyp removed (tubular adenoma). Pending diverting colostomy and Mediport placement by CRS today. Subjective Information 06/24: RD met with patient at bedside who appeared sleepy and slightly confused. Pt reported good appetite which is confirmed via EMR documented 100% PO intake for all meals x last 2 days. Pt denied N/V/C. Per RN note 06/23, pt having multiple BM per day. LBM documented 06/24. Pt was on a clear liquid diet 06/23, but is now on cardiac diet. 06/17: RD met with pt at bedside. Per pt, appetite now and cryptanalyst was well and pt did not follow any special diet at home. Pt states her dtr cooks for her daily, usually 3 meals a 1-3 snacks. Pt endorses: usual breakfast is reyes, 1-2 eggs, and black coffee, Usual lunch includes a salad and vegetables, Usual dinner includes a salad with meat. Snacks include fruit or nuts. Pt has some missing teeth but denies chew/swallow problems. Pt states her UBW for years ws ~170 lbs, but due to constipation/diarrhea plus improving dietary choices she has lost ~50 lbs, so the weight loss was partially intentional. NFPE completed: pt showed moderate muscle wasting and fat loss in facial and upper body regions. Nutrition education provided: discussed high iron foods, tips to increase iron absorption, and s/s of low-iron. Handout given to pt on high iron foods. Current Diet Order/Nutrition Support Cardiac/Renal x1; Clear liquid 06/23-06/24; Patient/Significant Other Able To Verbalize Education Provided Indicated - completed Pertinent Medications D5/KCl/NS, pantoprazole, metoprolol, NaCl, Apresoline, protonix, ativan Pertinent Labs Hgb/Hct: 9.0g/ 27.5% L; Iron: 17 L; Glucose: 107 H; Iron Sat 5 L Height (Feet) 5 feet Height (Inches) 6.00 inches Weight (Pounds) 128 pounds Weight (Calculated Kilograms) 58.044908 kilograms Patient Weight 58.06 kg Body Mass Index 20.66 kg/m2 Usual Weight 170 lbs %UBW 75 %IBW 98 [place]/Adjusted Body Weight 130lb Recent Weight Change Yes - 50lbs (22.7 kg) x5 months Weight Status Appropriate Gastrointestinal Symptoms None noted per EMR Last BM Jun 24, 2022 Food Allergies No Usual Diet At Home Regular diet; dtr cooks pt x3 meals plus snacks Skin Integrity Comment: Skin intact; Michael 22 Current % PO 100% x 2 days on clear liquid diet (06/23-06/24) Estimated Energy Expenditure (kcals/day) 9008-7827 (30-35 kcal/kg/d for malnutrition) Estimated Protein Required (g/day) 70-104 (1.2-1.8 g/kg/d for advanced age) Estimated Fluid Required (l/day) 3690-3840 (1 mL/kcal) Problem/Etiology/Signs/Symptoms Anemia related to suspected inadequate iron intake as evidenced by Hgb/Hct 8.6g/26.5% at admit; Iron 17; constipation and diarrhea x5 months; generalized weakness; syncope *on-going Severe protein-energy malnutrition related to constipation/diarrhea as evidenced by NFPE moderate muscle wasting and fat loss and 30% weight loss x5 months *on-going Expected Outcomes/Goals Anemia-related lab values WNL *Not meeting BM q 1-3 days; improved BM consistency *meeting Dietitian Recommendations Continue cardiac diet If PO <75% of est nutrient needs, add daily ONS Consider daily bowel regimen with Fe supplement Monitor/Evaluation Comment Moderate-severe PEM; high Fe foods RD education f/u Follow Up High Risk: F/U in 2-3days
--- NOTE | 2022-06-24 15:25 | NUR ---
Dietitian Recommendation 06/24/22 Dietitian Recommendations Continue cardiac diet If PO <75% of est nutrient needs, add daily ONS Consider daily bowel regimen with Fe supplement CC, MPH, RDN
--- NOTE | 2022-06-24 15:48 | NUR ---
Not seen for PT. Pt asleep in bed after returning from procedure. Will attempt PT again tomorrow. Addendum: 06/24/22 at 1901 by Romelia Malhotra PT PHYSICAL THERAPY CO-SIGN The Physical Therapy Progress Notes documented by Business Strategy Manager have been reviewed. Reviewed/Co-Signed by: Romelia Malhotra PT Documentation Done by:CECIL ROBLES PTA
[2022-06-24] MEDS: ACETAMINOPHEN 500 MG TABLET PO SCH ×2 (17:00→20:29)
[2022-06-24 19:00] VITALS: BP_SYST 105
[2022-06-24 20:15] VITALS: BP_SYST 105
[2022-06-25 04:00] VITALS: BP_SYST 110
[2022-06-25] MEDS: NORMAL SALINE 5 ML DISP.SYRIN IVF SCH ×3 (05:25→21:22)
[2022-06-25] MEDS: KCL 20 mEq in D5/0.45NS 1000mL 1,000 ML IV SCH ×2 (05:27→16:00)
[2022-06-25] MEDS: NACL 0.9% 1,000 ML IV SCH ×3 (05:39→16:00)
[2022-06-25] MEDS: ACETAMINOPHEN 500 MG TABLET PO SCH ×4 (06:07→20:59)
[2022-06-25 06:41] LABS: BASOPHILS % (AUTO) 0.3 % (0.0-2.0); HEMATOCRIT 28.3 % (36-48); HEMOGLOBIN 9.3 g/dL (12.0-16.0); LYMPHOCYTES # (AUTO) 1.4 K/uL (1.0-5.5); LYMPHOCYTES % (AUTO) 12.9 % (20.5-51.5); MEAN CORPUSCULAR HEMOGLOBIN 24 pg (27-31); MEAN CORPUSCULAR HGB CONC 33 % (32-36); MEAN CORPUSCULAR VOLUME 74 fL (79.0-98.0); MONOCYTES # (AUTO) 0.6 K/uL (0.0-1.0); MONOCYTES % (AUTO) 5.9 % (1.7-9.3); NEUTROPHILS # (AUTO) 8.9 K/uL (1.8-7.7); NEUTROPHILS % (AUTO) 80.9 % (40.0-70.0); PLATELET COUNT (AUTO) 229 K/uL (130-430); RED BLOOD CELL COUNT(AUTO) 3.82 MIL/uL (4.2-6.2); RED CELL DISTRIBUTION WIDTH 18.2 % (9.0-15.0)
[2022-06-25 08:00] VITALS: BP_SYST 138
[2022-06-25 08:41] LABS: ANION GAP 12 (5-15); CALCIUM 8.8 mg/dL (8.4-11.0); CHLORIDE 107 mmol/L (98-107); GLUCOSE 140 mg/dL (70-99); POTASSIUM 4.2 mmol/L (3.5-5.1); SODIUM SERUM 140 mmol/L (136-145); UREA NITROGEN, BLOOD 18 mg/dL (8-21)
[2022-06-25] MEDS: PANTOPRAZOLE SODIUM 40 MG/VIAL (PROTONIX) IVP SCH (09:40)
[2022-06-25] MEDS: METOPROLOL TARTRATE 50 MG TABLET PO SCH ×2 (09:41→21:01)
[2022-06-25] MEDS: HYDROmorphone 1 MG/ML INJ. CARTRIDGE IVP PRN (09:42)
[2022-06-25 12:23] VITALS: BP_SYST 100
[2022-06-25] MEDS: HYDROcodone/ACETAMIN 5-325 MG TAB (NORCO/ VICODIN) PO PRN ×2 (14:27→22:29)
--- NOTE | 2022-06-25 16:08 | NUR ---
GEN SURGEON DR TOSHIA BLACK WAS CALLED TO INFORM MD THAT COLOSTOMY IS NOT WORKING. SPOKE TO
--- NOTE | 2022-06-25 16:30 | NUR ---
WOUND EVALUATION: Late note for 06/25/2022 at 1630 secondary to patient care. Wound Consult received from Dr. William Ott. Thank you, Dr. Ott, for the consult. Patient received in a [place] Bed with an Isoflex COLETTE mattress, awake, alert, and oriented. Patient is able to turn in bed independently. Michael Score is a 22. Past Medical History: Hypertension, triple bypass surgery. Recent Labs: WBC 11.0, RBC 3.82, hemoglobin 9.3, hematocrit 28.3, ESR 54, glucose 140, albumin 2.2, C-reactive protein 8.3, serum total protein 5.5, PTT 22.2. Microbiology: Blood culture results x2 negative. Urine culture results negative. MRSA screen results negative. Intrinsic factors that delay wound healing: Hypoalbuminemia. Extrinsic factors that delay wound healing: Decreased mobility. Wound Assessment: 1. Left Anterior Abdomen: Diverting Colostomy site. Stoma has pink color, rounded shape, protrudes outward about 2-3 mm, and measures 2.4 cm x 2.5 cm. Recommend: Cleanse wound with mild soap and water. Apply Sureprep to elayne-stomal area. Cut colostomy bag to size and place over stoma. Perform site care q5 days, and as needed for pouch dislodgement. Also recommend: Encourage and assist patient as needed with repositioning every 2 hours with pillow support and off-load pressure areas with pillows for pressure re-distribution. Offload, elevate and float bilateral heels with pillows. Perform skin care and monitor skin integrity Q shift. Recommend for home Ostomy supplies: [employer] Braham Remover Wipes (3873) [employer] Skin Protective Wipes (5155) [employer] Adapt Barrier Rings (4304) [employer] Adapt Stoma Powder (6674) Premier One-Piece Drainable Ostomy Pouch Flat Flextend Barrier, Lock 'n Roll Microseal Closure, Tape, Filter (8650) Patient agreed to give her contact information to the [employer] Ostomy supply [employer] and to receive a starter kit in the mail. [employer] Brochure given to patient.
[2022-06-25 16:41] VITALS: BP_SYST 120
[2022-06-25 19:00] VITALS: BP_SYST 113
[2022-06-25 20:00] VITALS: BP_SYST 113
[2022-06-26 04:00] VITALS: BP_SYST 117
[2022-06-26] MEDS: NORMAL SALINE 5 ML DISP.SYRIN IVF SCH ×3 (06:25→21:06)
[2022-06-26] MEDS: ACETAMINOPHEN 500 MG TABLET PO SCH ×2 (06:26→21:02)
[2022-06-26 08:00] VITALS: BP_SYST 156
[2022-06-26 08:34] LABS: BASOPHILS % (AUTO) 0.3 % (0.0-2.0); EOSINOPHILS % (AUTO) 0.8 % (0.0-4.0); HEMATOCRIT 23.9 % (36-48); HEMOGLOBIN 7.6 g/dL (12.0-16.0); LYMPHOCYTES # (AUTO) 1.2 K/uL (1.0-5.5); LYMPHOCYTES % (AUTO) 19.1 % (20.5-51.5); MEAN CORPUSCULAR HEMOGLOBIN 25 pg (27-31); MEAN CORPUSCULAR HGB CONC 32 % (32-36); MEAN CORPUSCULAR VOLUME 77 fL (79.0-98.0); MONOCYTES # (AUTO) 0.5 K/uL (0.0-1.0); MONOCYTES % (AUTO) 7.9 % (1.7-9.3); NEUTROPHILS # (AUTO) 4.6 K/uL (1.8-7.7); NEUTROPHILS % (AUTO) 71.9 % (40.0-70.0); PLATELET COUNT (AUTO) 167 K/uL (130-430); RED BLOOD CELL COUNT(AUTO) 3.12 MIL/uL (4.2-6.2); RED CELL DISTRIBUTION WIDTH 19.4 % (9.0-15.0); WHITE BLOOD COUNT (AUTO) 6.4 K/uL (4.8-10.8)
[2022-06-26] MEDS: METOPROLOL TARTRATE 50 MG TABLET PO SCH ×2 (08:37→21:02)
[2022-06-26] MEDS: PANTOPRAZOLE SODIUM 40 MG/VIAL (PROTONIX) IVP SCH (08:38)
[2022-06-26 09:29] LABS: ALANINE AMINOTRANSFERASE 10 U/L (12-78); ALBUMIN 2.2 g/dL (3.4-4.8); ANION GAP 5 (5-15); ASPARTATE AMINOTRANSFERASE 16 U/L (10-37); C-REACTIVE PROTEIN QUANT 8.3 mg/dL (0-0.5); CALCIUM 8.4 mg/dL (8.4-11.0); CHLORIDE 110 mmol/L (98-107); CREATININE 0.94 mg/dL (0.55-1.30); GLUCOSE 99 mg/dL (70-99); POTASSIUM 4.8 mmol/L (3.5-5.1); SODIUM SERUM 141 mmol/L (136-145); TOTAL BILIRUBIN 0.2 mg/dL (0.0-1.0); UREA NITROGEN, BLOOD 21 mg/dL (8-21)
[2022-06-26] MEDS: KCL 20 mEq in D5/0.45NS 1000mL 1,000 ML IV SCH (12:00)
[2022-06-26 16:00] VITALS: BP_SYST 159
[2022-06-26] MEDS: HYDROmorphone 1 MG/ML INJ. CARTRIDGE IVP PRN (16:32)
--- NOTE | 2022-06-26 16:32 | NUR ---
CM: per Chi Lyle mg: [facility] will follow up care, FWW already delivered to home. RN please send 3 days ostomy supplies upon discharge. SUZETTE Reich aware : discharge barriers: JOSÉ MIGUEL bloody drains 30 cc . She will follow up with surgeon if pt is cleared for discharge.
[2022-06-26 19:55] VITALS: BP_SYST 113
[2022-06-27 00:02] VITALS: BP_SYST 143
--- NOTE | 2022-06-27 02:50 | NUR ---
Rounds/Bathroom Pt called and assisted to the bathroom, pt's colostomy full of air, emptied as needed. JOSÉ MIGUEL drain draining to gravity with 25cc red drainage, dressing C/D/I. Call light within reach. Bed low, locked, siderails up x2. Pt refused bed alarm. To monitor.
[2022-06-27] MEDS: NORMAL SALINE 5 ML DISP.SYRIN IVF SCH ×2 (06:00→15:28)
[2022-06-27] MEDS: ACETAMINOPHEN 500 MG TABLET PO SCH (06:44)
--- NOTE | 2022-06-27 06:45 | NUR ---
Closing notes/IV restart Pt alert awake, moved to Room 132-B. Pt states pain on R. shoulder is much better. IV on R. FA leaks, restarted on R. wrist 24G good blood return. Left Colostomy intact. R. JOSÉ MIGUEL drain with red drainage. L. mediport dressing C/D/I. Phone within reach. Bed low, locked, siderails up x2. pt refused bed alarm. To endorse to AM nurse. Addendum: 06/27/22 at 0734 by Angela Britton RN 3-day colostomy supply given to pt at bedside.
[2022-06-27 07:00] VITALS: BP_SYST 165
[2022-06-27 07:48] LABS: BASOPHILS % (AUTO) 0.2 % (0.0-2.0); EOSINOPHILS # (AUTO) 0.1 K/uL (0.0-0.4); EOSINOPHILS % (AUTO) 2.2 % (0.0-4.0); HEMATOCRIT 24.3 % (36-48); HEMOGLOBIN 7.9 g/dL (12.0-16.0); LYMPHOCYTES # (AUTO) 1.2 K/uL (1.0-5.5); LYMPHOCYTES % (AUTO) 26.9 % (20.5-51.5); MEAN CORPUSCULAR HEMOGLOBIN 25 pg (27-31); MEAN CORPUSCULAR HGB CONC 32 % (32-36); MEAN CORPUSCULAR VOLUME 76 fL (79.0-98.0); MONOCYTES # (AUTO) 0.4 K/uL (0.0-1.0); MONOCYTES % (AUTO) 9.4 % (1.7-9.3); NEUTROPHILS # (AUTO) 2.8 K/uL (1.8-7.7); NEUTROPHILS % (AUTO) 61.3 % (40.0-70.0); PLATELET COUNT (AUTO) 166 K/uL (130-430); RED CELL DISTRIBUTION WIDTH 19.7 % (9.0-15.0); WHITE BLOOD COUNT (AUTO) 4.5 K/uL (4.8-10.8)
[2022-06-27 07:59] LABS: ANION GAP 5 (5-15); CALCIUM 8.3 mg/dL (8.4-11.0); CHLORIDE 109 mmol/L (98-107); CREATININE 0.81 mg/dL (0.55-1.30); GLUCOSE 88 mg/dL (70-99); SODIUM SERUM 142 mmol/L (136-145); UREA NITROGEN, BLOOD 17 mg/dL (8-21)
[2022-06-27 08:00] VITALS: BP_SYST 165
[2022-06-27] MEDS: KCL 20 mEq in D5/0.45NS 1000mL 1,000 ML IV SCH (08:00)
[2022-06-27] MEDS: PANTOPRAZOLE SODIUM 40 MG/VIAL (PROTONIX) IVP SCH (09:53)
[2022-06-27] MEDS: METOPROLOL TARTRATE 50 MG TABLET PO SCH (09:55)
[2022-06-27] MEDS: HYDROmorphone 1 MG/ML INJ. CARTRIDGE IVP PRN (12:33)
[2022-06-27 14:15] VITALS: BP_SYST 159
--- NOTE | 2022-06-27 16:25 | NUR ---
Nutrition F/U RD reviewed pt's current EMR including diet Hx, physician notes, nursing notes, pertinent labs/meds/procedures, care trends, and care activity. Short note d/t high workload. Current Diet Order/Nutrition Support: Cardiac x3 days RD received Nutrition Consult for new diverting colostomy 06/26/22 1253. Pt reported OK appetite, tolerating diet well. RD provided nutrition education on topics of colostomy MNT w/ handouts from the Academy of [employer]etics Nutrition Care Manual. Pt stated that her children will be helping w/ her care upon D/C and that she would make sure they are aware of her new dietary guidelines. Encouraged increase in PO intakes and MVI use to prevent unintentional wt loss and risk for malnutrition. High nutritional risk; RD to F/U within 2-3 days.
--- NOTE | 2022-06-27 16:41 | NUR ---
Taught patient's son, Juan Chavez and his ostomy care. Ed and his demonstrated back to me. DC paper explained and signed by the patient. patient belongings sent back with the patient.
[2022-06-29 11:54] LABS: CEA 63.4 ng/mL (0.0-4.7)
== END 2022-06-27 16:50 | disposition home or self-care (01) | DRG 329 ==
LOC: SED 13:42 → INTOOBSV 18:15 → STU 18:15 → OBSVTOIN 06-16 14:56 → SMU 06-19 13:47
PROVIDERS: ADMIT Preventive Medicine Preventive Medicine/Occupational Environmental Medicine; ATTEND Preventive Medicine Preventive Medicine/Occupational Environmental Medicine
PROC: 4A10X4Z Monitoring of Central Nervous Electrical Activity, External Approach (ICD-10-PCS; 2022-06-16)
PROC: 0DBN8ZZ Excision of Sigmoid Colon, Via Natural or Artificial Opening Endoscopic (ICD-10-PCS; 2022-06-17)
PROC: 0DBL8ZX Excision of Transverse Colon, Via Natural or Artificial Opening Endoscopic, Diagnostic (ICD-10-PCS; 2022-06-17)
PROC: 0DB98ZX Excision of Duodenum, Via Natural or Artificial Opening Endoscopic, Diagnostic (ICD-10-PCS; principal; 2022-06-17 09:45)
PROC: 0DB78ZX Excision of Stomach, Pylorus, Via Natural or Artificial Opening Endoscopic, Diagnostic (ICD-10-PCS; 2022-06-17 09:45)
PROC: 0DNU4ZZ Release Omentum, Percutaneous Endoscopic Approach (ICD-10-PCS; 2022-06-24)
PROC: 02HV33Z Insertion of Infusion Device into Superior Vena Cava, Percutaneous Approach (ICD-10-PCS; 2022-06-24)
PROC: B5181ZA Fluoroscopy of Superior Vena Cava using Low Osmolar Contrast, Guidance (ICD-10-PCS; 2022-06-24)
PROC: B548ZZA Ultrasonography of Superior Vena Cava, Guidance (ICD-10-PCS; 2022-06-24)
PROC: 0D1N4Z4 Bypass Sigmoid Colon to Cutaneous, Percutaneous Endoscopic Approach (ICD-10-PCS; 2022-06-24 09:21)
DX: C20 Malignant neoplasm of rectum (principal); E43 Unspecified severe protein-calorie malnutrition; R55 Syncope and collapse; D50.9 Iron deficiency anemia, unspecified; E83.52 Hypercalcemia; D69.6 Thrombocytopenia, unspecified; K29.70 Gastritis, unspecified, without bleeding; K31.7 Polyp of stomach and duodenum; Z20.822 Contact with and (suspected) exposure to COVID-19; I25.10 Atherosclerotic heart disease of native coronary artery without angina pectoris; I12.9 Hypertensive chronic kidney disease with stage 1 through stage 4 chronic kidney disease, or unspecified chronic kidney disease; N18.30 Chronic kidney disease, stage 3 unspecified; K44.9 Diaphragmatic hernia without obstruction or gangrene; K64.9 Unspecified hemorrhoids; K57.90 Diverticulosis of intestine, part unspecified, without perforation or abscess without bleeding; K52.9 Noninfective gastroenteritis and colitis, unspecified; K63.5 Polyp of colon; E88.09 Other disorders of plasma-protein metabolism, not elsewhere classified; R53.81 Other malaise; M75.01 Adhesive capsulitis of right shoulder; Z95.1 Presence of aortocoronary bypass graft; Z87.19 Personal history of other diseases of the digestive system; Z93.3 Colostomy status; Z68.20 Body mass index [BMI] 20.0-20.9, adult
CPT/HCPCS: 36415; 43239; 45380; 45381; 45385; 70450-TC; 70551; 71045; 71260-TC; 72197; 73030; 76000; 76376; 80048; 80053; 81000; 82378; 82550; 82607; 82728; 82746; 83540; 83550; 83605; 83735; 84100; 84132; 84484; 85025; 85610-TC; 85651-TC; 85730-TC; 86140; 86886; 86900; 86901; 87040; 87081; 87086; 88305; 88312; 88313; 93005; 93306; 93880; 95816; 97110-GP; 97116-GP; A9575; C1727; C1788; C9113; C9290; G0378; J0131; J0360; J0461; J0690; J0696; J1100; J1170; J2001; J2060; J2175; J2250; J2405; J2704; J2916; J3010; J3465; J3480; J3490; J7030; J7060; Q9966; Q9967